=== PATIENT | male | born 1975 ===

== ENCOUNTER 2020-08-26 19:11 | Emergency (ER) | payer MEDICAID ==
[~2020-08-26] VITALS: Ht 188 cm; Wt 100.0 kg
[2020-08-26] MEDS ORDERED: HALOPERIDOL 5 MG/ML ONE (19:14)
[2020-08-26] MEDS ORDERED: HALOPERIDOL 5 MG/ML IM ONE (19:30)
[2020-08-26 19:33] LABS: BASOPHILS % (AUTO) 0 % (0-1); EOSINOPHILS % (AUTO) 0 % (1-7); LYMPHOCYTES % (AUTO) 3 % (22-44); MEAN CORPUSCULAR HGB CONC 34.2 g/dL (33.2-36.2); MONOCYTES % (AUTO) 2 % (2-9); NEUTROPHILS % (AUTO) 95 % (42-75); PLATELET COUNT 198 x10^3/uL (130-400); RED BLOOD COUNT 4.41 x10^6/uL (4.38-5.82); RED CELL DISTRIBUTION WIDTH 13.6 % (9.4-14.8)
[2020-08-26 19:43] LABS: ALBUMIN 3.6 g/dL (3.4-5.0); ANION GAP 9 mmol/L (5-15); CALCIUM 8.5 mg/dL (8.5-10.1); CHLORIDE 110 mmol/L (98-107); CREATININE 1.21 mg/dL (0.7-1.3)
[2020-08-26 19:48] LABS: SALICYLATE LEVEL < 1.7 mg/dL (2.8-20.0)
--- NOTE | 2020-08-26 19:52 | NUR ---
Pt BIBA for being agitated and combative at a store. Pt Alert, answers some questions appropriatly, speaks ila, but is not oriented. Pt received 5mg versed by EMS. Pt to room, placed in restraints. + CSM post placement. Pt had drug pipe in hand upon arrival. Pt with stable VS, non-labored breathing. Pt medicated per order. Pt more calm now, on monitor. Restraint paper work filled out.
[2020-08-26 19:53] LABS: MD SCAN
--- NOTE | 2020-08-26 21:13 | NUR ---
Pt calm, Out of restraints. Physician aware. Pt resting. Free of harm. will Continue to monitor.
--- NOTE | 2020-08-26 21:34 | NUR ---
Pt resting calmly. RA sats 85%. 2L NC placed, SPO2 up to 95%. Pt with no further changes. Will monitor.
--- NOTE | 2020-08-26 22:58 | NUR ---
Pt calm in bed. No changes. On monitor. Will continue to monitor.
[2020-08-27 02:35] VITALS: BP 101/47
--- NOTE | 2020-08-27 02:43 | NUR ---
THIS RN WENT IN TO GET PATIENT TO GET UP FOR DISCHARGE. ONCE PT WAS WOKEN UP HE JUMPED OUT OF BED, GRABBED HIS BAG OF CLOTHES AND SHOES AND STARTED POWER WALKING OFF THE UNIT. THIS RN ATTEMPTED TO STOP PT AND TELL HIM TO PUT ON SHOES AND CLOTHES BEFORE LEAVING AND THEN PT WAS PACING STATING "I DONT HAVE TIME, I GOTTA GO". PT REFUSED DISCHARGE PAPERS, AND VERY FRANTICALLY LEFT THROUGH THE ER LOBBY ENTRANCE. VERY STEADY GAIT.
== END 2020-08-27 02:49 | disposition home or self-care (01) ==
LOC: ED 19:44
DX: F15.10 Other stimulant abuse, uncomplicated (principal); F17.200 Nicotine dependence, unspecified, uncomplicated; R45.1 Restlessness and agitation
CPT/HCPCS: 36415; 80048; 80299; 80320; 80329; 82040; 85025; 96372; 99285; J1630; G0480